=== PATIENT | male | born 1960 | race Caucasian/White ===

== ENCOUNTER → 2019-10-27 | Outpatient (CLI) | payer OTHER ==
--- NOTE | 2019-10-27 10:26 | Diagnostic Imaging Report ---
EXAM: US ABDOMEN COMPLETE DATE: 10/27/2019 9:05 AM INDICATION: Hepatitis C COMPARISON: None TECHNIQUE: Transverse and longitudinal boyd scale and color doppler sonographic images of the upper abdomen were obtained. FINDINGS: LIVER 19.0 cm in the right midclavicular line. Increased echogenicity of the liver with normal contour, no masses. SPLEEN 9.9 cm in maximum diameter. Normal echogenicity, no masses. GALLBLADDER Echogenic shadowing stones at the neck of the gallbladder. No gallbladder wall thickening, distention, or pericholecystic fluid. Negative sonographic Fernandez's sign. The gallbladder wall measures 2 mm. BILE DUCTS No intra nor extra-hepatic biliary dilation. Common bile duct measures 3mm PANCREAS: Visualized portions are normal. RIGHT KIDNEY: 12.5 cm Echogenicity: Normal Collecting System: No hydronephrosis Stones: None Cyst/Mass: None LEFT KIDNEY: 11.3 cm Echogenicity: Normal Collecting System: No hydronephrosis Stones: None Cyst/Mass: None VESSELS: Aorta: Visualized portions are within normal size limits Inferior Vena Cava: Visualized portions are normal Main Portal Vein: 1.1 cm, normal size with hepatopetal flow. FREE FLUID: None IMPRESSION: Cholelithiasis without sonographic evidence of cholecystitis. Hepatomegaly and diffuse hepatic steatosis. Signed by: Oseas Jovel MD on 10/27/2019 10:22 AM
== END ==
LOC: US 08:35
PROVIDERS: ATTEND Internal Medicine Gastroenterology
DX: B19.21 Unspecified viral hepatitis C with hepatic coma (principal)
CPT/HCPCS: 76700